=== PATIENT | female | born 1995 | race Caucasian/White ===

== ENCOUNTER 2018-04-15 07:02 | Day surgery (SDC) | payer BC ==
[2018-04-13 15:02] VITALS: BMI 20.1
[~2018-04-15 07:02] MED LIST: LACTATED RINGERS 1,000 ML IV SCH; LIDOCAINE 1% 20 ML VIAL (10MG/ML) FOR IV START INTRADERMA PRN
[2018-04-15 07:22] VITALS: RESP 16
[2018-04-15] MEDS ORDERED: MIDAZOLAM 2 MG/2 ML VIAL ONE (07:58)
[2018-04-15] MEDS ORDERED: PROPOFOL 10 MG/ML 20 ML VIAL IV ONE (07:58)
[2018-04-15] MEDS ORDERED: LIDOCAINE 1% INJ 10MG/ML (20 ML MDV) ONE (07:58)
--- NOTE | 2018-04-15 08:09 | P.PCN ---
Date of Procedure: 04/15/18 Procedure(s) Performed: BRIEF HISTORY: Patient is a 22-year-old, pleasant, white female, scheduled for an upper endoscopy as a part of evaluation of the chronic persistent nausea for the last 2 years duration. She also has acid reflux and has been on omeprazole 20 mg daily.. PROCEDURE PERFORMED: Esophagogastroduodenoscopy with biopsy. PREOPERATIVE DIAGNOSIS: GERD/chronic persistent nausea. IV sedation per anesthesia. PROCEDURE: After informed consent was obtained, the patient was brought into the endoscopy unit. IV sedation was administered by Anesthesia under continuous monitoring. Initially the Olympus GIF-140 video endoscope was inserted into the mouth. Esophagus intubated without any difficulty. It was gradually advanced into the stomach and duodenum and carefully examined. The bulb and the second part of the duodenum appeared normal. Biopsies were done from the duodenum to rule out celiac disease. There was evidence of mild duodenitis in the duodenal bulb with scattered erosions. The scope at this time was withdrawn to the stomach, adequately insufflated with air, and upon careful examination, mucosa of the antrum, had patchy areas of erythema and biopsies were done from this area. The body, cardia and the fundus appeared normal. The scope was then withdrawn into the esophagus. The GE junction was located at 39 cm from the incisors. The esophagus appeared normal. There were no erosions or ulcerations seen and the patient tolerated the procedure well. IMPRESSION: 1. Mild antral gastritis and erosive duodenitis. 2. No evidence of esophagitis or peptic ulcer disease. RECOMMENDATIONS: The findings of this examination were discussed with the patient as well as her family. She was advised to follow with the biopsy results. In the meantime she will continue with omeprazole 20 mg daily and follow antireflux measures. She will be seen in office in 3-4 weeks.
[2018-04-15 08:31] VITALS: BP 107/69; PULSE 70
== END 2018-04-15 08:59 | disposition home or self-care (01) ==
LOC: ORWHC2ENDO 07:02
PROVIDERS: ATTEND Internal Medicine Gastroenterology
DX: K29.50 Unspecified chronic gastritis without bleeding (principal); K21.0 Gastro-esophageal reflux disease with esophagitis; K29.80 Duodenitis without bleeding; J45.909 Unspecified asthma, uncomplicated; Z79.899 Other long term (current) drug therapy; Z88.0 Allergy status to penicillin
CPT/HCPCS: 81025; 88305; 43239; J2250; J2001; J2704

== ENCOUNTER 2020-07-06 20:28 | Emergency (ER) | payer BC ==
[2020-07-06 21:14] VITALS: BP 104/68; PULSE 72; RESP 16; TEMP 98.3
--- NOTE | 2020-07-06 22:02 | ED ---
General Adult HPI - General Chief complaint: ENT Stated complaint: Bleeding from ear Time Seen by Provider: 07/06/20 21:25 Source: patient, RN notes reviewed Mode of arrival: ambulatory Limitations: no limitations - History of Present Illness Initial comments: 24-year-old male presents to the emergency room for bleeding from the right ear canal. Patient noticed this earlier tonight. Patient states she was using a Q- tip in her ear earlier today she felt a pain and thinks he may have been from this. Patient denies any difficulty hearing. Denies any significant pain at this time.Patient has no other complaints at this time including shortness of breath, chest pain, abdominal pain, nausea or vomiting, headache, or visual changes. - Related Data Home Medications Medication Instructions Recorded Confirmed Omeprazole 20 mg PO DAILY 04/13/18 04/15/18 Allergies Allergy/AdvReac Type Severity Reaction Status Date / Time Penicillins Allergy Rash/Hives Verified 04/15/18 07:17 Review of Systems ROS Statement: Those systems with pertinent positive or pertinent negative responses have been documented in the HPI. ROS Other: All systems not noted in ROS Statement are negative. Past Medical History Past Medical History: Asthma, GERD/Reflux Additional Past Medical History / Comment(s): persistent nausea-no vomiting,hxseasonal asthma History of Any Multi-Drug Resistant Organisms: None Reported Past Surgical History: No Surgical Hx Reported Additional Past Anesthesia/Blood Transfusion Reaction / Comment(s): no hx of having anesthesia Smoking Status: Never smoker Past Alcohol Use History: Occasional Past Drug Use History: Marijuana - Past Family History Mother Family Medical History: No Reported History Father Family Medical History: Cancer General Exam Limitations: no limitations General appearance: alert Head exam: Present: atraumatic Eye exam: Present: normal appearance, PERRL, EOMI ENT exam: Present: normal exam, mucous membranes moist, TM's normal bilaterally (Right tympanic membrane has no evidence of perforation). Absent: normal external ear exam (Patient has a small abrasion noted on the anterior aspect of the external auditory canal.) Neck exam: Present: normal inspection, full ROM Respiratory exam: Present: normal lung sounds bilaterally. Absent: respiratory distress Cardiovascular Exam: Present: regular rate, normal rhythm Neurological exam: Present: alert Course Vital Signs 07/06/20 21:08 Temperature 98.3 F Pulse Rate 72 Respiratory 16 Rate Blood Pressure 104/68 O2 Sat by Pulse 97 Oximetry Medical Decision Making - Medical Decision Making Patient has an abrasion inside the external auditory canal in the anterior aspect around 3:00. Patient does not have any perforations or abrasions of the tympanic membrane. At this time recommended the patient leaves the ear alone in discontinue inserting Q-tips into her ear. Recommend she follow up with primary care. If it starts to become painful, drains purulent material or erythematous/edematous she needs to return to the emergency room. Disposition Clinical Impression: Abrasion of right ear canal Disposition: HOME SELF-CARE Condition: Good Instructions (If sedation given, give patient instructions): Earache (ED) Additional Instructions: Please take Motrin and Tylenol for pain. Please monitor for any redness or purulent drainage and return if these occur. Return for any other worsening symptoms. Is patient prescribed a controlled substance at d/c from ED?: No Referrals: Kenneth Johnson MD [Primary Care Provider] - 1-2 days Time of Disposition: 22:01
== END 2020-07-06 22:17 | disposition home or self-care (01) ==
LOC: EC 20:28
DX: S00.411A Abrasion of right ear, initial encounter (principal); K21.9 Gastro-esophageal reflux disease without esophagitis; Z79.899 Other long term (current) drug therapy; Z88.0 Allergy status to penicillin; X58.XXXA Exposure to other specified factors, initial encounter
CPT/HCPCS: 99282

== ENCOUNTER 2024-06-04 14:12 | Emergency (ER) | payer BC ==
[2024-06-04 14:34] VITALS: PULSE 69; TEMP 98.2
--- NOTE | 2024-06-04 15:35 | ED ---
Animal Bite HPI - General Chief Complaint: Animal Bite Stated Complaint: Animal Bite Time Seen by Provider: 06/04/24 15:21 Source: patient Mode of arrival: ambulatory Limitations: no limitations - History of Present Illness Initial Comments: Patient was bitten by a muskrat through leather glove to the left hand adjacent to the second MCP joint. She states she was subsequently advised to be seen about possibility of having rabies vaccine. Patient denies any symptoms currently. No fevers. She has not had drainage from the wound. MD Complaint: animal bite Onset/Timin -: days(s) Left: Hand Animal: other (muskrat) Description: wild animal Mechanism: bite Context: provoked Associated Symptoms: none - Related Data Patient Tetanus UTD: No Home Medications Medication Instructions Recorded Confirmed Albuterol Inhaler [Ventolin Hfa 2 puff INHALATION RT-QID PRN 06/04/24 06/07/24 Inhaler] Budesonide/Formoterol Fumarate 2 puff INHALATION RT-BID 06/04/24 06/07/24 [Breyna 160-4.5 Mcg Inhaler] Escitalopram [Lexapro] 10 mg PO HS 06/04/24 06/07/24 Allergies Allergy/AdvReac Type Severity Reaction Status Date / Time buspirone [From BuSpar] Allergy Rash/Hives Verified 06/07/24 14:26 Penicillins Allergy Rash/Hives Verified 06/07/24 14:26 Review of Systems ROS Statement: Those systems with pertinent positive or pertinent negative responses have been documented in the HPI. ROS Other: All systems not noted in ROS Statement are negative. Constitutional: Denies: fever, chills, weakness Respiratory: Denies: cough, dyspnea Cardiovascular: Denies: chest pain, palpitations Gastrointestinal: Denies: nausea, vomiting Skin: Denies: rash Neurological: Denies: headache, weakness Past Medical History Past Medical History: Asthma, GERD/Reflux Additional Past Medical History / Comment(s): persistent nausea-no vomiting,hxseasonal asthma History of Any Multi-Drug Resistant Organisms: None Reported Past Surgical History: No Surgical Hx Reported Additional Past Anesthesia/Blood Transfusion Reaction / Comment(s): no hx of having anesthesia Smoking Status: Never smoker Past Alcohol Use History: Occasional Past Drug Use History: Marijuana - Past Family History Mother Family Medical History: No Reported History Father Family Medical History: Cancer General Exam Limitations: no limitations General appearance: alert, in no apparent distress Head exam: Present: atraumatic, normocephalic Respiratory exam: Present: normal lung sounds bilaterally. Absent: respiratory distress, wheezes, rales, rhonchi, stridor, accessory muscle use Cardiovascular Exam: Present: regular rate, normal rhythm, normal heart sounds. Absent: systolic murmur, diastolic murmur, rubs, gallop Neurological exam: Present: alert Skin exam: Present: warm, dry, intact, normal color. Absent: rash Course Vital Signs 06/04/24 06/04/24 14:30 17:16 Temperature 98.2 F Pulse Rate 69 69 Respiratory 18 20 Rate Blood Pressure 123/81 124/87 O2 Sat by Pulse 98 97 Oximetry Medical Decision Making - Medical Decision Making Was pt. sent in by a medical professional or institution (, PA, CORNER CUTTER MACHINE OPERATOR, urgent care, hospital, or detention...) When possible be specific @ -[No] Did you speak to anyone other than the patient for history (EMS, parent, family, police, friend...)? What history was obtained from this source @ -[No] Did you review nursing and triage notes (agree or disagree)? Why? @ -[I reviewed and agree with nursing and triage notes] Were old charts reviewed (outside hosp., previous admission, EMS record, old EKG, old radiological studies, urgent care reports/EKG's, detention records)? Report findings @ -[No old charts were reviewed] Differential Diagnosis (chest pain, altered mental status, abdominal pain women, abdominal pain men, vaginal bleeding, weakness, fever, dyspnea, syncope, headache, dizziness, GI bleed, back pain, seizure, CVA, palpatations, mental health, musculoskeletal)? @ -[Animal bite, wound infection, rabies exposure EKG interpreted by me (3pts min.). @ -[As above] X-rays interpreted by me (1pt min.). @ -[None done] CT interpreted by me (1pt min.). @ -[None done] U/S interpreted by me (1pt. min.). @ -[None done] What testing was considered but not performed or refused? (CT, X-rays, U/S, labs)? Why? @ -[None] What meds were considered but not given or refused? Why? @ -[None] Did you discuss the management of the patient with other professionals (professionals i.e. , PA, CORNER CUTTER MACHINE OPERATOR, lab, RT, psych nurse, licensed clinical social worker, route rider supervisor, teacher, civil preparedness officer, renal case manager)? Give summary @ -[No] Was smoking cessation discussed for >3mins.? @ -[No] Was critical care preformed (if so, how long)? @ -[No] Were there social determinants of health that impacted care today? How? (Homelessness, low income, unemployed, alcoholism, drug addiction, transportation, low edu. Level, literacy, decrease access to med. care, intermediate, rehab)? @ -[No] Was there de-escalation of care discussed even if they declined (Discuss DNR or withdrawal of care, Hospice)? DNR status @ -[No] What co-morbidities impacted this encounter? (DM, HTN, Smoking, COPD, CAD, Cancer, CVA, ARF, Chemo, Hep., AIDS, mental health diagnosis, sleep apnea, morbid obesity)? @ -[None] Was patient admitted / discharged? Hospital course, mention meds given and route, prescriptions, significant lab abnormalities, going to OR and other pertinent info. @ -[This patient is a 28-year-old woman who presents for evaluation approximately 1 week after muskrat bite. The patient's bite wound is well- healed without any evidence of infection. Started on rabies prophylaxis and vaccination and discussed further course of vaccination as well as other return parameters. Patient also had tetanus update Undiagnosed new problem with uncertain prognosis? @ -[No] Drug Therapy requiring intensive monitoring for toxicity (Heparin, Nitro, Insulin, Cardizem)? @ -[No] Were any procedures done? @ -[No] Diagnosis/symptom? @ -[Acute muskrat bite Rabies prophylaxis Tetanus vaccination Acute, or Chronic, or Acute on Chronic? @ -[default] Uncomplicated (without systemic symptoms) or Complicated (systemic symptoms)? @ -[default] Side effects of treatment? @ -[No] Exacerbation, Progression, or Severe Exacerbation? @ -[No] Poses a threat to life or bodily function? How? (Chest pain, [place], OR, pneumonia, PE, COPD, DKA, ARF, appy, cholecystitis, CVA, Diverticulitis, Homicidal, Suicidal, threat to staff... and all critical care pts) @ -[No] All treatments are based on ideal body weight as in ED triage Disposition Clinical Impression: Bite by animal Disposition: HOME SELF-CARE Condition: Good Instructions (If sedation given, give patient instructions): Animal Bite (ED) Additional Instructions: Follow-up for the remainder of the rabies vaccination series given on days 3, 7, and 14. Should further symptoms develop return emergency department immediately. Is patient prescribed a controlled substance at d/c from ED?: No Referrals: None,Stated [Primary Care Provider] - 1-2 days
[2024-06-04] MEDS: RABIES VACCINE (PCEC) 2.5 UNIT KIT IM ONE (16:51)
[2024-06-04] MEDS: RABIES IMM GLOB 300 UNIT/2 ML VIAL IM ONE (16:52)
[2024-06-04] MEDS: DIPH,PERTUS(ACELL)TETVAC-LF 0.5 ML VIAL IM ONE (17:02)
[2024-06-04 17:20] VITALS: BP 124/87; RESP 20
== END 2024-06-04 17:20 | disposition home or self-care (01) ==
LOC: EC 14:12
DX: S61.452A Open bite of left hand, initial encounter (principal); Z88.0 Allergy status to penicillin; Z88.8 Allergy status to other drugs, medicaments and biological substances; Z23 Encounter for immunization; Z20.3 Contact with and (suspected) exposure to rabies; W64.XXXA Exposure to other animate mechanical forces, initial encounter
CPT/HCPCS: 90377; 90471; 90472; 90675; 90715; 96372; 99283